=== PATIENT | male | born 1985 | race Caucasian/White ===

== ENCOUNTER 2022-05-08 08:24 | Emergency (ER) | payer MEDICAID, OTHER ==
[2022-05-08] MEDS: Sodium Chloride 0.9% 1,000 ML IV ONE ×2 (08:55→11:25)
[2022-05-08] MEDS: HYDROmorphone 1 MG/ML Syringe IVPUSH ONE ×2 (08:55→11:24)
[2022-05-08] MEDS: Ondansetron 4 MG/2 ML SDV IVPUSH ONE (08:59)
[2022-05-08] MEDS: Ketorolac 30 MG/ML SDV IVPUSH ONE (09:16)
[2022-05-08 09:34] LABS: CHLORIDE,CL 104 mmol/L (98-107); SODIUM,NA 140 mmol/L (136-145)
[2022-05-08 09:37] LABS: ESTIMATED GFR 88 mL/min (>=60)
[2022-05-08] MEDS: Tamsulosin 0.4 MG Cap.ER PO ONE (11:25)
[2022-05-08] MEDS: Acetaminophen/oxyCODONE 325-5 MG Tab PO ONE (12:07)
[2022-05-08] MEDS ORDERED: Iopamidol 612 MG/ML 100 ML Bottle IVPUSH ONE (13:01)
[2022-05-08] MEDS: Iopamidol 612 MG/ML 100 ML Bottle IVPUSH ONE (13:02)
== END 2022-05-08 14:47 | disposition home or self-care (01) ==
LOC: VM.ED 08:24
DX: N13.2 Hydronephrosis with renal and ureteral calculous obstruction (principal); Z91.040 Latex allergy status
CPT/HCPCS: 74177; 80053; 81001; 83690; 85025; 86140; 96361; 96374; 96375; 96376; 99284-25; A9270-GY; J1170; J1885; J2405; J7030; Q9967